=== PATIENT | female | born 1970 | race Caucasian/White ===

== ENCOUNTER 2025-04-01 14:55 | Emergency (ER) | payer OTHER ==
[2025-04-01] MEDS ORDERED: Ketorolac Tromethamine 30 MG (1 mL) VIAL ONE (16:03)
[2025-04-01 16:27] LABS: Glucose, Urine (Dipstick) >=1000 mg/dL (Negative); Leukocyte 100 (Negative); Protein, Urine (Dipstick) 15 mg/dl (Neg-Trace); Specific Gravity, Urine 1.015 (1.005-1.030)
[2025-04-01 16:31] LABS: #Basophils 0.08 10x3/uL (0.0-0.2); #Eosinophils 0.16 10x3/uL (0.0-0.5); #Monocytes 0.78 10x3/uL (0.0-1.1); #Neutrophils 4.16 10x3/uL (1.5-8.4); %Basophils 1.1 % (0.0-2.0); %Eosinophils 2.1 % (0.0-6.0); %Lymphocytes 31.7 % (18.0-47.0); %Monocytes 10.2 % (0.0-10.0); %Neutrophils 54.6 % (40.0-75.0); Hematocrit 38.7 % (34.9-44.5); Hemoglobin 12.8 g/dL (12.0-15.5); Mean Corpuscular Hemoglobin 29.4 pg (27.0-33.0); Mean Corpuscular Volume 88.8 fL (81.6-98.3); Platelet Count 238 10x3/uL (150-450); Red Blood Cell (RBC) Count 4.36 10x6/uL (3.90-5.03); White Blood Cell (WBC) Count 7.61 10x3/uL (3.5-10.5)
[2025-04-01 16:40] LABS: Bacteria/HPF 2+ HPF (None Seen); CAUTI Indications for Culture Pelvic or flank pain; RBC/HPF 0-3 HPF (0-3); Yeast-Budding 1+ HPF (None Seen)
[2025-04-01 16:41] LABS: Mucous/LPF 1+ LPF (<2+); Urine Culture Reflex No No
[2025-04-01 16:42] LABS: ALT (SGPT) 17 U/L (Less than 34); AST (SGOT) 20 U/L (11-34); Albumin 4.5 g/dL (3.1-4.5); Alkaline Phosphatase 87 U/L (40-110); Anion Gap 14 mmol/L (10-20); BUN (Urea Nitrogen) 30 mg/dL (9.8-20.1); Bilirubin, Total 0.4 mg/dL (0.3-1.2); Calc. Creatinine Clearance 0 mL/min (70-130); Calcium 8.9 mg/dL (7.8-10.44); Carbon Dioxide 24 mmol/L (22-29); Chloride 107 mmol/L (98-107); Globulin 2.9 g/dL (2.4-3.5); Glucose 97 mg/dL (70-105); Lipase 37 U/L (8-78); Potassium 3.9 mmol/L (3.5-5.1); Sodium 141 mmol/L (136-145)
[2025-04-01] MEDS ORDERED: Acetaminophen/Codeine 30-300mg Tablet ONE (17:08)
[2025-04-01] MEDS ORDERED: Ciprofloxacin 500 MG TAB ONE (17:10)
== END 2025-04-01 18:10 | disposition home or self-care (01) ==
LOC: CSHERS 14:55
DX: N20.0 Calculus of kidney (principal); E11.9 Type 2 diabetes mellitus without complications; I10 Essential (primary) hypertension; I48.91 Unspecified atrial fibrillation; Z95.0 Presence of cardiac pacemaker
CPT/HCPCS: 74176; 80053; 81001; 83690; 85025; 96374; J1885

== ENCOUNTER 2025-06-12 09:26 | Emergency (ER) | payer OTHER ==
[2025-06-12] MEDS ORDERED: Albuterol 2.5 MG (3 mL) NEB ONE (10:10)
[2025-06-12 10:36] LABS: #Basophils 0.10 10x3/uL (0.0-0.2); #Eosinophils 0.26 10x3/uL (0.0-0.5); #Monocytes 0.77 10x3/uL (0.0-1.1); #Neutrophils 5.03 10x3/uL (1.5-8.4); %Basophils 1.3 % (0.0-2.0); %Eosinophils 3.4 % (0.0-6.0); %Lymphocytes 19.5 % (18.0-47.0); %Monocytes 10.0 % (0.0-10.0); %Neutrophils 65.4 % (40.0-75.0); Hematocrit 41.0 % (34.9-44.5); Hemoglobin 13.6 g/dL (12.0-15.5); Mean Corpuscular Hemoglobin 29.6 pg (27.0-33.0); Mean Corpuscular Volume 89.1 fL (81.6-98.3); Platelet Count 219 10x3/uL (150-450); Red Blood Cell (RBC) Count 4.60 10x6/uL (3.90-5.03); White Blood Cell (WBC) Count 7.69 10x3/uL (3.5-10.5)
[2025-06-12 10:56] LABS: ALT (SGPT) 14 U/L (Less than 34); AST (SGOT) 15 U/L (11-34); Albumin 4.1 g/dL (3.1-4.5); Alkaline Phosphatase 89 U/L (40-110); Anion Gap 14 mmol/L (10-20); BUN (Urea Nitrogen) 19 mg/dL (9.8-20.1); Bilirubin, Total 0.5 mg/dL (0.3-1.2); Calc. Creatinine Clearance 0 mL/min (70-130); Calcium 8.5 mg/dL (7.8-10.44); Carbon Dioxide 23 mmol/L (22-29); Chloride 109 mmol/L (98-107); Globulin 2.7 g/dL (2.4-3.5); Glucose 97 mg/dL (70-105); Potassium 3.7 mmol/L (3.5-5.1); Sodium 142 mmol/L (136-145)
[2025-06-12 11:03] LABS: Troponin I Less than 0.010 ng/mL (< 0.028)
== END 2025-06-12 13:18 | disposition home or self-care (01) ==
LOC: CSHERS 09:26
DX: J44.1 Chronic obstructive pulmonary disease with (acute) exacerbation (principal); I10 Essential (primary) hypertension; E11.9 Type 2 diabetes mellitus without complications; I48.91 Unspecified atrial fibrillation
CPT/HCPCS: 71046; 80053; 83880; 84484; 85025; 93005; 93010; 94640; J7611